=== PATIENT | male | born 1960 | race American Indian/Alaskan Native ===

== ENCOUNTER 2018-12-05 20:11 | Emergency (ER) | payer OTHER ==
[2018-12-05] MEDS ORDERED: TORADOL IM ONE (20:23)
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
[2018-12-05 22:50] LABS: BUN/Creatinine Ratio 16; Blood Urea Nitrogen 14 mg/dL (9-20); Calcium 8.9 mg/dL (8.4-10.2); Hemolysis Index 38
[2018-12-05 22:52] LABS: Creatine Kinase MB 2.7 ng/mL (0.0-4.0)
[2018-12-05 22:56] LABS: INR 0.88 (0.87-1.13)
[2018-12-05 22:57] LABS: Partial Thromboplastin Time 21.2 Sec. (24.2-36.6)
[2018-12-05 23:52] LABS: Hemoglobin TNR gm/dl (11.8-15.2); Red Blood Count TNR M/mm3 (3.65-5.03)
[2018-12-05 23:53] LABS: Hematocrit TNR % (35.5-45.6); Mean Corpuscular HGB Conc TNR % (32-34); Mean Corpuscular Volume TNR fl (84-94); Mean Platelet Volume TNR fl (6-12); Platelet Count TNR K/mm3 (140-440); Red Cell Distribution Width TNR % (13.2-15.2)
[2018-12-05 23:54] LABS: Basophils % (Auto) TNR % (0.0-1.8); Eosinophils # (Auto) TNR K/mm3 (0.0-0.4); Eosinophils % (Auto) TNR % (0.0-4.3); Lymphocytes # (Auto) TNR K/mm3 (1.2-5.4); Lymphocytes % (Auto) TNR % (13.4-35.0); Monocytes # (Auto) TNR K/mm3 (0.0-0.8); Monocytes % (Auto) TNR % (0.0-7.3)
[2018-12-05 23:55] LABS: Basophils # (Auto) TNR K/mm3 (0.0-0.1)
[2018-12-06 00:26] LABS: Basophils # (Auto) 0.1 K/mm3 (0.0-0.1); Basophils % (Auto) 0.7 % (0.0-1.8); Eosinophils # (Auto) 0.2 K/mm3 (0.0-0.4); Eosinophils % (Auto) 2.8 % (0.0-4.3); Lymphocytes # (Auto) 3.6 K/mm3 (1.2-5.4); Lymphocytes % (Auto) 49.8 % (13.4-35.0); Mean Corpuscular HGB Conc 37 % (32-34); Mean Corpuscular Volume 90 fl (84-94); Monocytes # (Auto) 0.5 K/mm3 (0.0-0.8); Monocytes % (Auto) 6.9 % (0.0-7.3); Platelet Count 196 K/mm3 (140-440); Red Blood Count 4.36 M/mm3 (3.65-5.03); Red Cell Distribution Width 15.1 % (13.2-15.2)
[2018-12-06 00:27] LABS: Hemoglobin 14.4 gm/dl (11.8-15.2)
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
[2018-12-06 01:52] VITALS: BP 129/83
== END 2018-12-06 02:08 | disposition home or self-care (01) ==
LOC: ED 20:11
DX: S16.1XXA Strain of muscle, fascia and tendon at neck level, initial encounter (principal); S76.012A Strain of muscle, fascia and tendon of left hip, initial encounter; S20.219A Contusion of unspecified front wall of thorax, initial encounter; E11.9 Type 2 diabetes mellitus without complications; V87.7XXA Person injured in collision between other specified motor vehicles (traffic), initial encounter; Y93.89 Activity, other specified; Y92.488 Other paved roadways as the place of occurrence of the external cause; Y99.8 Other external cause status
CPT/HCPCS: 36415; 70450; 71046; 71260; 72100; 72125; 73502; 80048; 82550; 82553; 83880; 84484; 85025; 85610; 85730; 93005; 93010; 96372; 99285; J1885; Q9967